=== PATIENT | male | born 1945 | race Caucasian/White ===

== ENCOUNTER 2016-07-08 09:34 | Emergency (ER) | payer MEDICARE ==
[~2016-07-08] VITALS: Ht 176.5 cm; Wt 95.2 kg
[~2016-07-08 09:34] MED LIST: GLIM1TAB PO; LOSA25TA31 PO; PANT20 PO; PRAV40TA2 PO
[2016-07-08 09:43] VITALS: BP 142/79; PULSE 55; RESP 18; TEMP 98; O2SAT 100
--- NOTE | 2016-07-08 10:15 | PD ---
HPI Chief Complaint: Musculoskeletal Complaint Time Seen by Provider: 10:08 Travel History International Travel<30 days: No Contact w/Intl Traveler<30days: No Traveled to known affect area: No History of Present Illness HPI This patient complains of pain from a fall. 3 days ago he slipped on the shower and fell backwards and hit his Upper back. He complains of pain in the neck and upper back. Symptoms severity is moderate. Slightly improved from 3 days ago but still hurting. No neurologic complaint. No headache. No LOC. PFSH Past Medical History Diabetes: Yes Diminished Hearing: No Hypertension: Yes Social History Alcohol Use: Yes (occasionally) Tobacco Use: Yes (several cigars, daily) Substance Use: No Allergies-Medications (Allergen,Severity, Reaction): Coded Allergies: Erythromycin (Verified Allergy, Intermediate, Diarrhea, 07/08/16) Reported Meds & Prescriptions Reported Meds & Active Scripts Active Reported Otezla (Apremilast) 30 Mg Tab 30 Mg PO BID Glimepiride 2 Mg Tab 2 Mg PO DAILY Take with breakfast or first main meal Losartan (Losartan Potassium) 25 Mg Tab 25 Mg PO DAILY Pantoprazole (Pantoprazole Sodium) 20 Mg Tab 20 Mg PO BID Review of Systems General / Constitutional: No: Fever HENT: No: Headaches Respiratory: No: Cough Physical Exam Narrative SKIN: Inspection shows no rash or ulcers. Palpation shows no induration or nodules. Psych: Normal mood and affect. Normal insight and judgment. Back: Has some soreness in the musculature near the upper thoracic spine and lower cervical spine. No true midline tenderness. No bruising or deformity. Data Data Last Documented VS Vital Signs Date Time Temp Pulse Resp B/P Pulse Ox O2 Delivery O2 Flow Rate FiO2 07/08/16 09:43 98.0 55 18 142/79 100 Orders Spine, Cervical - Ltd (Ap&Lat) (07/08/16 ) Spine, Thoracic-Ap/Lat/Sw(3vw) (07/08/16 ) MDM Medical Decision Making Medical Screen Exam Complete: Yes Emergency Medical Condition: Yes Medical Record Reviewed: Yes Differential Diagnosis Contusion, muscle strain, compression fracture Narrative Course I have reviewed the patient's electronic medical record. Patient is neurologically intact. There are no Significant objective findings I reviewed his cervical spine x-rays which arthritic changes and a fusion but no fracture I reviewed his thoracic spine x-rays show arthritic change without fracture Stable for outpatient follow-up Diagnosis Primary Impression: Contusion of back Qualified Code: S20.222A - Contusion of back, left, initial encounter Additional Instructions: The patient was advised to follow up with their physician and return if they worsen. Med/Other Pt SpecificInfo: Other Disposition: 01 DISCHARGE HOME Condition: Stable Neri Layne MD Jul 08, 2016 10:15
[2016-07-08] MEDS ORDERED: APRE1TAB3 PO (10:22)
[2016-07-08] MEDS ORDERED: GLIM2TAB PO (10:22)
[2016-07-08] MEDS ORDERED: PANT20TA2 PO (10:22)
[2016-07-08] MEDS ORDERED: LOSA25TA PO (10:22)
--- NOTE | 2016-07-08 11:36 | RADHPO ---
EXAM DATE/TIME: 07/08/2016 10:55 [facility] COMPARISON: No previous studies available for comparison. INDICATIONS : Neck pain after falling 4 days ago. MEDICAL HISTORY : Hypertension. Diabetes mellitus type 2. SURGICAL HISTORY : Cervical laminectomy. ENCOUNTER: Initial ACUITY: 4 - 6 days PAIN SCORE: 8/10 LOCATION: Neck. FINDINGS: Two projection examination was performed. On this 2 view examination there appears to be good alignme nt of the cervical spine. There appears to be evidence of fusion at C4-5 and C5-6. C7 is not well dem onstrated due to patient's shoulders. The bony structures appear to be grossly intact. No soft tissu e swelling is demonstrated. There are some primary degenerative change is present. The odontoid proce ss is intact. CONCLUSION: 1. Limited 2 views of the cervical spine. No definite bony fracture. 2. Primary bony degenerative changes. 3. Evidence of prior fusion at C4-5 and C5-6. Clive Vargas MD on July 08, 2016 at 11:31 Board Certified Radiologist. This report was verified electronically.
--- NOTE | 2016-07-08 11:38 | RADHPO ---
EXAM DATE/TIME: 07/08/2016 11:00 [facility] COMPARISON: No previous studies available for comparison. INDICATIONS : Mid back pain for 4 days after falling. MEDICAL HISTORY : Hypertension. Diabetes mellitus type 2. SURGICAL HISTORY : Cervical laminectomy. ENCOUNTER: Initial ACUITY: 4 - 6 days PAIN SCORE: 8/10 LOCATION: Thoracic. FINDINGS: There is normal alignment of the thoracic vertebral bodies. Vertebral body height is maintained. No evidence of fracture or subluxation. There are primary bony degenerative changes noted throughout th e thoracic spine. Pedicles are intact at all levels. The paravertebral reflections are not thickened . CONCLUSION: No acute bony fracture. Primary bony degenerative changes. Clive Vargas MD on July 08, 2016 at 11:35 Board Certified Radiologist. This report was verified electronically.
== END 2016-07-08 12:22 | disposition home or self-care (01) ==
LOC: PHED 09:34
DX: S20.222A Contusion of left back wall of thorax, initial encounter (principal); I10 Essential (primary) hypertension; E11.9 Type 2 diabetes mellitus without complications; Z79.4 Long term (current) use of insulin; F17.210 Nicotine dependence, cigarettes, uncomplicated; W18.2XXA Fall in (into) shower or empty bathtub, initial encounter; Y93.9 Activity, unspecified; Y92.9 Unspecified place or not applicable; Y99.9 Unspecified external cause status
CPT/HCPCS: 72040; 72072; 99283

== ENCOUNTER 2016-12-04 02:10 | Emergency (ER) | payer MEDICARE ==
[~2016-12-04] VITALS: Ht 175.3 cm; Wt 97.3 kg
[~2016-12-04 02:10] MED LIST changes: +APRE1TAB3 PO; -GLIM1TAB PO; +GLIM2TAB PO; +LOSA25TA PO; -LOSA25TA31 PO; -PANT20 PO; +PANT20TA2 PO; -PRAV40TA2 PO
[2016-12-04 02:17] VITALS: BP 185/102; PULSE 63; RESP 12; TEMP 97.8; O2SAT 100
[2016-12-04] MEDS ORDERED: CHOL4POW3 PO (02:36)
[2016-12-04] MEDS ORDERED: SODIUM CHLOR 0.9% 1000 ML INJ 1,000 ML IV SCH (02:41)
[2016-12-04] MEDS ORDERED: ONDANSETRON HCL 4 MG/2 ML VIAL IVP ONE (02:45)
[2016-12-04] MEDS ORDERED: SODIUM CHLORIDE 0.9% FLUSH 10 ML FLUSH IV FLUSH PRN (02:45)
[2016-12-04 03:06] LABS: AUTOMATED NEUTROPHIL # 5.2 TH/MM3 (1.8-7.7); BASOPHIL # 0.1 TH/MM3 (0-0.2); BASOPHIL % 1.2 % (0.0-2.0); EOSINOPHIL # 0.1 TH/MM3 (0-0.4); EOSINOPHIL % 1.7 % (0.0-4.0); HEMATOCRIT 36.1 % (39.0-51.0); LYMPH % 12.9 % (9.0-44.0); LYMPHOCYTE # 0.9 TH/MM3 (1.0-4.8); MEAN CELL VOLUME 66.1 FL (80.0-100.0); MEAN CORPUSCULAR HEMOGLOBIN 20.5 PG (27.0-34.0); MONO % 10.6 % (0.0-8.0); NEUT % 73.6 % (16.0-70.0); PLATELET COUNT 187 TH/MM3 (150-450); RED BLOOD COUNT 5.47 MIL/MM3 (4.50-5.90); RED CELL DISTRIBUTION WIDTH 14.6 % (11.6-17.2); WHITE BLOOD COUNT 7.1 TH/MM3 (4.0-11.0)
[2016-12-04 03:13] LABS: CHLORIDE 105 MEQ/L (98-107); POTASSIUM 4.1 MEQ/L (3.5-5.1); SODIUM (NA) 144 MEQ/L (136-145)
[2016-12-04 03:14] VITALS: O2SAT 97
[2016-12-04 03:15] LABS: GLUCOSE,URINE NEG (NEG); KETONE, URINE NEG (NEG); NITRITE,URINE NEG (NEG); PH, URINE 5.5 (5.0-8.5)
[2016-12-04 03:17] LABS: ANION GAP 8 MEQ/L (5-15); BLOOD UREA NITROGEN 15 MG/DL (7-18)
[2016-12-04 03:19] LABS: ALT (GPT) 20 U/L (12-78)
[2016-12-04 03:20] LABS: AST (GOT) 12 U/L (15-37); GLOMERULAR FILTRATION RATE 74 ML/MIN (>89)
[2016-12-04 03:21] LABS: HEMO FLAGS AUTO DIFF; TOTAL BILIRUBIN ADULT 0.2 MG/DL (0.2-1.0)
[2016-12-04 03:22] LABS: BLOOD, URINE MOD (NEG); COMMENT (UR) CULT NOT INDICATED; CULTURE IF INDICATED CULT NOT INDICATED; RBC, URINE 15-19 /hpf (0-3); SQUAMOUS EPITHELIAL CELL URINE 0-5 /hpf (0-5); URINE COLOR YELLOW (YELLW/STRAW); WBC, URINE 0-2 /hpf (0-5)
[2016-12-04 03:22] LABS: ALKALINE PHOSPHATASE 86 U/L (45-117)
[2016-12-04 03:37] LABS: OVALOCYTES 2+ (NORMAL); PLATELET ESTIMATE SMEAR NORMAL (NORMAL); PLATELET MORPHOLOGY NORMAL (NORMAL); SCAN/DIFF AUTO DIFF CONFIRMED
[2016-12-04] MEDS ORDERED: IOHEXOL 350 MG/ML 10 ML VIAL (for RAD DIAG) IV ONE (03:47)
[2016-12-04 03:50] VITALS: BP 159/80; PULSE 72; RESP 18; O2SAT 100
[2016-12-04 04:44] VITALS: BP 167/86; PULSE 79; RESP 18; O2SAT 97
--- NOTE | 2016-12-04 04:47 | RADRPT ---
EXAM DATE/TIME: 12/04/2016 03:28 [facility] COMPARISON: CT ABDOMEN & PELVIS W CONTRAST, October 18, 2015, 20:49. INDICATIONS : Left flank abdominal pain with vomiting. IV CONTRAST: 100 cc Omnipaque 350 (iohexol) IV ORAL CONTRAST: No oral contrast ingested. RADIATION DOSE: 20.06 CTDIvol (mGy) MEDICAL HISTORY : Diabetes mellitus type 2. Hypertension. SURGICAL HISTORY : Fusion, lumbar. Cholecystectomy.Laminectomy. ENCOUNTER: Initial ACUITY: 1 day PAIN SCALE: 8/10 LOCATION: Left flank abdomen TECHNIQUE: Volumetric scanning of the abdomen and pelvis was performed. Using automated exposure control and ad justment of the mA and/or kV according to patient size, radiation dose was kept as low as reasonably achievable to obtain optimal diagnostic quality images. DICOM format image data is available electro nically for review and comparison. FINDINGS: LOWER LUNGS: The visualized lower lungs are clear. Stable small hiatus hernia. LIVER: Homogeneous density without lesion. There is no dilation of the biliary tree. Cholecystectomy. SPLEEN: Normal size without lesion. PANCREAS: Fatty replaced. No focal induration. KIDNEYS: The right kidney has a normal appearance for a noncalcified stones are to her 1st period of the left side, there are 2 calcified stones in the lower pole which measure 6 mm. There is mild hydronephrosi s and hydroureter down to the distal portion. There is a 4 mm calcification within the urinary bladd er adjacent to the trigone which probably represents a recently passed stone. ADRENAL GLANDS: Within normal limits. VASCULAR: There is no aortic aneurysm. BOWEL/MESENTERY: No dilated loops of small or large bowel. The appendix is identified, has a normal appearance, and i s retrocecal in location. Scattered sigmoid diverticula without radiographic evidence of diverticuli tis. No evidence of free fluid. ABDOMINAL WALL: Within normal limits. RETROPERITONEUM: There is no lymphadenopathy. BLADDER: No wall thickening or mass. REPRODUCTIVE: Within normal limits. INGUINAL: There is no lymphadenopathy or hernia. MUSCULOSKELETAL: Within normal limits for patient age. CONCLUSION: 1. Mild left hydronephrosis and hydroureter with a 4 mm calcification within the urinary bladder andrés cent to the left trigone, probably representing a recently passed left renal stone. There are 2 srini tional calcified stones lower pole left kidney. 2. Stable hiatus hernia and sigmoid diverticula. Mark Romero MD on December 04, 2016 at 4:40 Board Certified Radiologist. This report was verified electronically.
--- NOTE | 2016-12-04 05:08 | PD ---
HPI Chief Complaint: Flank/Kidney Pain Time Seen by Provider: 02:41 Travel History International Travel<30 days: No Contact w/Intl Traveler<30days: No Traveled to known affect area: No History of Present Illness HPI The patient is a 71-year-old male with history of diverticulitis and previous urinary stones who complains of left flank pain beginning tonight. He has also been vomiting. He denies any blood in the vomitus. The pain is sharp and 10 over 10. PFSH Past Medical History Diabetes: Yes Patient Takes Glucophage: No Diminished Hearing: No GERD: Yes Hypertension: Yes Tetanus Vaccination: > 5 Years Influenza Vaccination: Yes Past Surgical History Cholecystectomy: Yes Social History Alcohol Use: Yes (occasionally) Tobacco Use: Yes (several cigars, weekly) Substance Use: No Allergies-Medications (Allergen,Severity, Reaction): Coded Allergies: Erythromycin (Verified Allergy, Intermediate, Diarrhea, 12/04/16) Reported Meds & Prescriptions Reported Meds & Active Scripts Active Reported Cholestyramine 4 Gm/Dose Powd 4 Gm PO DAILY 1 level scoopful of powder contains 4 grams of cholestyramine. Glimepiride 2 Mg Tab 1 Mg PO DAILY Take with breakfast or first main meal Losartan (Losartan Potassium) 25 Mg Tab 25 Mg PO DAILY Pantoprazole (Pantoprazole Sodium) 20 Mg Tab 20 Mg PO BID Review of Systems Except as stated in HPI: all other systems reviewed are Neg Physical Exam Narrative GENERAL: The patient is alert, oriented 3 in moderate distress with his left flank pain. His vital signs show blood pressure 185/102 but otherwise normal. SKIN: Focused skin assessment warm/dry. HEAD: Atraumatic. Normocephalic. EYES: Pupils equal and round. No scleral icterus. No injection or drainage. ENT: No nasal bleeding or discharge. Mucous membranes pink and moist. NECK: Trachea midline. No JVD. CARDIOVASCULAR: Regular rate and rhythm. No murmur appreciated. RESPIRATORY: No accessory muscle use. Clear to auscultation. Breath sounds equal bilaterally. GASTROINTESTINAL: Abdomen soft, with tenderness in the left UVJ and flank to direct palpation, nondistended. Hepatic and splenic margins not palpable. No guarding or rebound is present. MUSCULOSKELETAL: No obvious deformities. No clubbing. No cyanosis. No edema. NEUROLOGICAL: Awake and alert. No obvious cranial nerve deficits. Motor grossly within normal limits. Normal speech. PSYCHIATRIC: Appropriate mood and affect; insight and judgment normal. Data Data Last Documented VS Vital Signs Date Time Temp Pulse Resp B/P Pulse Ox O2 Delivery O2 Flow Rate FiO2 12/04/16 04:44 79 18 167/86 97 Room Air 12/04/16 02:17 97.8 Orders Complete Blood Count With Diff (12/04/16 02:41) Comprehensive Metabolic Panel (12/04/16 02:41) Lipase (12/04/16 02:41) Urinalysis - C+S If Indicated (12/04/16 02:41) Ct Abd/Pel W Iv Contrast(Rout) (12/04/16 02:41) Iv Access Insert/Monitor (12/04/16 02:41) Ecg Monitoring (12/04/16 02:41) Oximetry (12/04/16 02:41) Ondansetron Inj (Zofran Inj) (12/04/16 02:45) Sodium Chlor 0.9% 1000 Ml Inj (Ns 1000 M (12/04/16 02:41) Sodium Chloride 0.9% Flush (Ns Flush) (12/04/16 02:45) Iohexol 350 Inj (Omnipaque 350 Inj) (12/04/16 03:47) Labs Laboratory Tests Test 12/04/16 12/04/16 03:00 03:06 White Blood Count 7.1 TH/MM3 Red Blood Count 5.47 MIL/MM3 Hemoglobin 11.2 GM/DL Hematocrit 36.1 % Mean Corpuscular Volume 66.1 FL Mean Corpuscular Hemoglobin 20.5 PG Mean Corpuscular Hemoglobin 31.0 % Concent Red Cell Distribution Width 14.6 % Platelet Count 187 TH/MM3 Mean Platelet Volume 8.8 FL Neutrophils (%) (Auto) 73.6 % Lymphocytes (%) (Auto) 12.9 % Monocytes (%) (Auto) 10.6 % Eosinophils (%) (Auto) 1.7 % Basophils (%) (Auto) 1.2 % Neutrophils # (Auto) 5.2 TH/MM3 Lymphocytes # (Auto) 0.9 TH/MM3 Monocytes # (Auto) 0.8 TH/MM3 Eosinophils # (Auto) 0.1 TH/MM3 Basophils # (Auto) 0.1 TH/MM3 CBC Comment AUTO DIFF Differential Comment AUTO DIFF CONFIRMED Platelet Estimate NORMAL Platelet Morphology Comment NORMAL Ovalocytes 2+ Sodium Level 144 MEQ/L Potassium Level 4.1 MEQ/L Chloride Level 105 MEQ/L Carbon Dioxide Level 31.0 MEQ/L Anion Gap 8 MEQ/L Blood Urea Nitrogen 15 MG/DL Creatinine 1.00 MG/DL Estimat Glomerular Filtration 74 ML/MIN Rate Random Glucose 124 MG/DL Calcium Level 8.5 MG/DL Total Bilirubin 0.2 MG/DL Aspartate Amino Transf 12 U/L (AST/SGOT) Alanine Aminotransferase 20 U/L (ALT/SGPT) Alkaline Phosphatase 86 U/L Total Protein 6.4 GM/DL Albumin 3.2 GM/DL Lipase 67 U/L Urine Color YELLOW Urine Turbidity CLEAR Urine pH 5.5 Urine Specific [place] 1.017 Urine Protein NEG mg/dL Urine Glucose (UA) NEG mg/dL Urine Ketones NEG mg/dL Urine Occult Blood MOD Urine Nitrite NEG Urine Bilirubin NEG Urine Leukocyte Esterase NEG Urine RBC 15-19 /hpf Urine WBC 0-2 /hpf Urine Squamous Epithelial 0-5 /hpf Cells Urine Bacteria NONE /hpf Microscopic Urinalysis Comment CULT NOT INDICATED MDM Medical Decision Making Medical Screen Exam Complete: Yes Emergency Medical Condition: Yes Medical Record Reviewed: Yes Interpretation(s) The CBC shows a hemoglobin of 11.2 and hematocrit of 36.1 but is otherwise unremarkable. The complete metabolic profile shows a GFR of 74, albumin of 3.2 but is otherwise normal. The lipase is normal. The urine shows moderate occult blood with 15-19 red cells but is otherwise normal and culture is not indicated. The CT abdomen/pelvis shows mild left hydronephrosis and hydroureter with a 4 mm calcification within the urinary bladder adjacent to the left trigone. This probably represents a recently passed left renal stone. There are 2 additional calcified stones in the lower pole of the left kidney. Incidentally noted is a hiatal hernia and sigmoid diverticula. Differential Diagnosis Diverticulitis, urinary stone, appendicitis, colitis Narrative Course The patient has a recently passed 4 mm urinary stone. It is now 0500 and the morning and the patient feels better and is able to go home. Diagnosis Primary Impression: Left ureteral calculus Additional Instructions: As we discussed, you just passed a 4 mm stone. Take [id number] Motrin and follow-up with your primary care physician if you have any problems. Severe pain should promptly return to the emergency department. Med/Other Pt SpecificInfo: No Change to Meds Disposition: 01 DISCHARGE HOME Condition: Stable Walter Cabezas MD Dec 04, 2016 05:08
== END 2016-12-04 05:20 | disposition home or self-care (01) ==
LOC: PHED 02:10
DX: N13.2 Hydronephrosis with renal and ureteral calculous obstruction (principal); K44.9 Diaphragmatic hernia without obstruction or gangrene; K57.30 Diverticulosis of large intestine without perforation or abscess without bleeding; E11.9 Type 2 diabetes mellitus without complications; I10 Essential (primary) hypertension; K21.9 Gastro-esophageal reflux disease without esophagitis
CPT/HCPCS: 74177; 80053; 81001; 83690; 85025; 96360; 99285; J7030; Q9967

== ENCOUNTER 2017-07-27 09:10 | Emergency (ER) | payer MEDICARE, OTHER ==
[~2017-07-27] VITALS: Ht 175.3 cm; Wt 94.0 kg
[~2017-07-27 09:10] MED LIST changes: -APRE1TAB3 PO; +CHOL4POW3 PO
[2017-07-27 09:14] VITALS: BP 184/82; PULSE 103; RESP 24; TEMP 100.1; O2SAT 97
[2017-07-27] MEDS ORDERED: FOLI800T PO (10:25)
[2017-07-27] MEDS ORDERED: ACETAMINOPHEN 500 MG CPLT PO ONE (10:45)
[2017-07-27] MEDS ORDERED: OSELTAMIVIR PHOSPHATE 75 MG CAP PO ONE (10:45)
--- NOTE | 2017-07-27 10:49 | PD ---
HPI Chief Complaint: Cold / Flu Symptoms Time Seen by Provider: 10:37 Travel History International Travel<30 days: No Contact w/Intl Traveler<30days: No Traveled to known affect area: No History of Present Illness HPI This 72-year-old male complaining of cough and congestion. Started getting sick Thursday night. He's had some sore throat. He's had fever to 101. He has a history of type 2 diabetes and hypertension. He has no history of heart disease. He's been coughing up some yellow phlegm. He has been having diffuse myalgias PFSH Past Medical History High Cholesterol: Yes Diabetes: Yes Patient Takes Glucophage: No Diminished Hearing: No GERD: Yes Hypertension: Yes Past Surgical History Cholecystectomy: Yes Social History Alcohol Use: Yes (occasionally) Tobacco Use: Yes (several cigars, weekly) Substance Use: No Allergies-Medications (Allergen,Severity, Reaction): Coded Allergies: erythromycin base (Unverified Allergy, Intermediate, Diarrhea, 07/27/17) Reported Meds & Prescriptions Reported Meds & Active Scripts Active Reported Folic Acid 0.8 Mg Tab 800 Mcg PO DAILY Cholestyramine 4 Gm/Dose Powd 4 Gm PO DAILY 1 level scoopful of powder contains 4 grams of cholestyramine. Glimepiride 2 Mg Tab 1 Mg PO DAILY Take with breakfast or first main meal Losartan (Losartan Potassium) 25 Mg Tab 25 Mg PO DAILY Pantoprazole (Pantoprazole Sodium) 20 Mg Tab 20 Mg PO BID Review of Systems General / Constitutional: Positive: Fever, Chills Eyes: No: Drainage HENT: Positive: Sore Throat Cardiovascular: No: Chest Pain or Discomfort, Palpitations Respiratory: Positive: Cough Gastrointestinal: No: Vomiting, Diarrhea Genitourinary: No: Urgency Musculoskeletal: Positive: Myalgias Neurologic: Positive: Weakness Physical Exam Narrative GENERAL: Well-developed male is 89 SKIN: Focused skin assessment warm/dry. HEAD: Atraumatic. Normocephalic. EYES: Pupils equal and round. No scleral icterus. No injection or drainage. ENT: No nasal bleeding or discharge. Mucous membranes pink and moist. NECK: Trachea midline. No JVD. CARDIOVASCULAR: Regular rate and rhythm. No murmur appreciated. RESPIRATORY: No accessory muscle use. Clear to auscultation. Breath sounds equal bilaterally. GASTROINTESTINAL: Abdomen soft, non-tender, nondistended. Hepatic and splenic margins not palpable. MUSCULOSKELETAL: No obvious deformities. No clubbing. No cyanosis. No edema. NEUROLOGICAL: Awake and alert. No obvious cranial nerve deficits. Motor grossly within normal limits. Normal speech. PSYCHIATRIC: Appropriate mood and affect; insight and judgment normal. Data Data Last Documented VS Vital Signs Date Time Temp Pulse Resp B/P (MAP) Pulse Ox O2 Delivery O2 Flow Rate FiO2 07/27/17 12:15 102.2 92 18 150/69 (96) 95 Room Air Orders Orders Oseltamivir (Tamiflu) (07/27/17 10:45) Acetaminophen (Tylenol) (07/27/17 10:45) Chest, Single Ap (07/27/17 10:46) Complete Blood Count With Diff (07/27/17 12:22) Comprehensive Metabolic Panel (07/27/17 12:22) Lactic Acid Sepsis Protocol (07/27/17 12:22) Urinalysis - C+S If Indicated (07/27/17 12:22) Influenzae A/B Antigen (07/27/17 12:22) Blood Culture (07/27/17 12:22) Sodium Chlor 0.9% 1000 Ml Inj (Ns 1000 M (07/27/17 12:30) Ketorolac Inj (Toradol Inj) (07/27/17 12:30) Ondansetron Inj (Zofran Inj) (07/27/17 12:30) Labs Laboratory Tests Test 07/27/17 12:25 White Blood Count 6.7 TH/MM3 Red Blood Count 5.40 MIL/MM3 Hemoglobin 11.2 GM/DL Hematocrit 36.0 % Mean Corpuscular Volume 66.6 FL Mean Corpuscular Hemoglobin 20.7 PG Mean Corpuscular Hemoglobin Concent 31.0 % Red Cell Distribution Width 14.1 % Platelet Count 137 TH/MM3 Mean Platelet Volume 9.0 FL Neutrophils (%) (Auto) 85.3 % Lymphocytes (%) (Auto) 5.2 % Monocytes (%) (Auto) 5.8 % Eosinophils (%) (Auto) 0.2 % Basophils (%) (Auto) 3.5 % Neutrophils # (Auto) 5.8 TH/MM3 Lymphocytes # (Auto) 0.3 TH/MM3 Monocytes # (Auto) 0.4 TH/MM3 Eosinophils # (Auto) 0.0 TH/MM3 Basophils # (Auto) 0.2 TH/MM3 CBC Comment AUTO DIFF Blood Urea Nitrogen 10 MG/DL Creatinine 1.20 MG/DL Random Glucose 138 MG/DL Total Protein 6.8 GM/DL Albumin 3.5 GM/DL Calcium Level 8.3 MG/DL Alkaline Phosphatase 97 U/L Aspartate Amino Transf (AST/SGOT) 28 U/L Alanine Aminotransferase (ALT/SGPT) 27 U/L Total Bilirubin 0.5 MG/DL Sodium Level 135 MEQ/L Potassium Level 4.0 MEQ/L Chloride Level 101 MEQ/L Carbon Dioxide Level 28.5 MEQ/L Anion Gap 6 MEQ/L Estimat Glomerular Filtration Rate 60 ML/MIN Lactic Acid Level 1.7 mmol/L [facility] Medical Decision Making Medical Screen Exam Complete: Yes Emergency Medical Condition: Yes Medical Record Reviewed: Yes Differential Diagnosis Differential includes pneumonia, influenza, viral syndrome Narrative Course Chest x-ray is negative for pneumonia. White count is 6000. Tests for influenza is positive. Diagnosis Primary Impression: Influenza A Additional Instructions: Drink plenty of fluids, take Tylenol and Motrin for fever Scripts Ondansetron Odt (Zofran Odt) 4 Mg Tab 4 MG SL Q6HR Y for Nausea/Vomiting, #10 TAB 0 Refills Prov: Rashad Farias MD 07/27/17 Oseltamivir (Tamiflu) 75 Mg Cap 75 MG PO BID for Mgmt Viral Infection for 5 Days, #10 CAP 0 Refills Prov: Rashad Farias MD 07/27/17 Disposition: 01 DISCHARGE HOME Condition: Stable Rashad Farias MD Jul 27, 2017 10:49
[2017-07-27 11:15] VITALS: BP 173/80; PULSE 93; RESP 18; TEMP 103; O2SAT 95
--- NOTE | 2017-07-27 11:50 | RADRPT ---
EXAM DATE/TIME: 07/27/2017 11:19 [facility] COMPARISON: No previous studies available for comparison. INDICATIONS : Chest pain, shortness of breath and flu like symptoms. MEDICAL HISTORY : Diabetes mellitus type 2. Hypertension. SURGICAL HISTORY : Fusion, lumbar. Cholecystectomy.Laminectomy ENCOUNTER: Initial ACUITY: 3 days PAIN SCORE: 4/10 LOCATION: Bilateral chest FINDINGS: 2 frontal views of the chest demonstrate the lungs to be symmetrically aerated without evidence of ma ss, infiltrate or effusion. The heart is mildly enlarged without pulmonary vascular engorgement. A d egenerative thoracic spine. CONCLUSION: 1. Cardiomegaly without pulmonary vascular engorgement. Mark Hernandez Jr., MD on July 27, 2017 at 11:42 Board Certified Radiologist. This report was verified electronically.
[2017-07-27 12:15] VITALS: BP 150/69; PULSE 92; RESP 18; TEMP 102.2; O2SAT 95
[2017-07-27] MEDS ORDERED: KETOROLAC TROMETHAMINE 30 MG/ML (IVP) VIAL IV PUSH ONE (12:30)
[2017-07-27] MEDS ORDERED: SODIUM CHLOR 0.9% 1000 ML INJ 1,000 ML IV ONE (12:30)
[2017-07-27] MEDS ORDERED: ONDANSETRON HCL 4 MG/2 ML VIAL IV PUSH ONE (12:30)
[2017-07-27 12:40] LABS: AUTOMATED NEUTROPHIL # 5.8 TH/MM3 (1.8-7.7); BASOPHIL # 0.2 TH/MM3 (0-0.2); BASOPHIL % 3.5 % (0.0-2.0); EOSINOPHIL % 0.2 % (0.0-4.0); HEMOGLOBIN 11.2 GM/DL (13.0-17.0); LYMPH % 5.2 % (9.0-44.0); LYMPHOCYTE # 0.3 TH/MM3 (1.0-4.8); MEAN CELL VOLUME 66.6 FL (80.0-100.0); MEAN CORPUSCULAR HEMOGLOBIN 20.7 PG (27.0-34.0); MONO % 5.8 % (0.0-8.0); MONOCYTE # 0.4 TH/MM3 (0-0.9); NEUT % 85.3 % (16.0-70.0); PLATELET COUNT 137 TH/MM3 (150-450); RED CELL DISTRIBUTION WIDTH 14.1 % (11.6-17.2); WHITE BLOOD COUNT 6.7 TH/MM3 (4.0-11.0)
[2017-07-27 12:48] LABS: CHLORIDE 101 MEQ/L (98-107); SODIUM (NA) 135 MEQ/L (136-145)
[2017-07-27 12:53] LABS: ALBUMIN 3.5 GM/DL (3.4-5.0); BICARBONATE 28.5 MEQ/L (21.0-32.0); BLOOD UREA NITROGEN 10 MG/DL (7-18); CALCIUM 8.3 MG/DL (8.5-10.1); GLUCOSE,RANDOM 138 MG/DL (74-106)
[2017-07-27 12:56] LABS: ALT (GPT) 27 U/L (12-78); AST (GOT) 28 U/L (15-37)
[2017-07-27 12:58] LABS: GLOMERULAR FILTRATION RATE 60 ML/MIN (>89); TOTAL BILIRUBIN ADULT 0.5 MG/DL (0.2-1.0); TOTAL PROTEIN 6.8 GM/DL (6.4-8.2)
[2017-07-27 12:59] LABS: ALKALINE PHOSPHATASE 97 U/L (45-117)
[2017-07-27] MEDS ORDERED: OSEL75 PO (13:09)
[2017-07-27] MEDS ORDERED: ZOFR4TAB3 SL (13:09)
[2017-07-27 13:11] LABS: OVALOCYTES 2+ (NORMAL)
[2017-07-27 13:35] VITALS: BP 125/59; PULSE 89; RESP 16; TEMP 99.4; O2SAT 96
[2017-07-27] MEDS ORDERED: TYLE325T PO ×2 (20:14)
[2017-07-27] MEDS ORDERED: GLIM1TAB PO ×2 (20:14)
== END 2017-07-27 14:01 | disposition home or self-care (01) ==
LOC: PHED 09:10
DX: J09.X2 Influenza due to identified novel influenza A virus with other respiratory manifestations (principal); E78.00 Pure hypercholesterolemia, unspecified; E11.9 Type 2 diabetes mellitus without complications; I10 Essential (primary) hypertension; F17.290 Nicotine dependence, other tobacco product, uncomplicated; Z88.1 Allergy status to other antibiotic agents; Z79.899 Other long term (current) drug therapy
CPT/HCPCS: 71045; 80053; 83605; 85025; 87040; 87804; 96361; 96374; 96375; 99284; J1885; J2405; J7030

== ENCOUNTER 2017-07-27 19:14 | Inpatient (IN) | payer OTHER, MEDICARE ==
[~2017-07-27] VITALS: Ht 175.3 cm; Wt 95.7 kg
[~2017-07-27 19:14] MED LIST changes: +FOLI800T PO; +OSEL75 PO; +ZOFR4TAB3 SL
[2017-07-27 19:33] VITALS: BP 155/69; PULSE 101; RESP 12; TEMP 100.3; O2SAT 94
[2017-07-27] MEDS ORDERED: TYLE325T PO ×2 (20:14)
[2017-07-27] MEDS ORDERED: GLIM1TAB PO ×2 (20:14)
[2017-07-27 20:25] VITALS: BP 150/61; PULSE 106; RESP 14; RESP 16; TEMP 102.8; O2SAT 91; O2SAT 92
[2017-07-27] MEDS ORDERED: PIPERACIL-TAZO 4.5 GM PREMIX 100 ML IV ONE (20:30)
[2017-07-27] MEDS ORDERED: SODIUM CHLOR 0.9% 1000 ML INJ 1,000 ML IV ONE (20:30)
[2017-07-27] MEDS ORDERED: ACETAMINOPHEN 500 MG CPLT PO ONE (20:30)
[2017-07-27] MEDS ORDERED: ONDANSETRON HCL 4 MG/2 ML VIAL IV PUSH ONE (20:30)
[2017-07-27 21:17] LABS: AUTOMATED NEUTROPHIL # 6.9 TH/MM3 (1.8-7.7); BASOPHIL # 0.1 TH/MM3 (0-0.2); BASOPHIL % 0.8 % (0.0-2.0); BILIRUBIN, URINE NEG (NEG); BLOOD, URINE NEG (NEG); EOSINOPHIL % 0.1 % (0.0-4.0); GLUCOSE,URINE NEG (NEG); HEMATOCRIT 35.9 % (39.0-51.0); HEMOGLOBIN 11.4 GM/DL (13.0-17.0); KETONE, URINE NEG (NEG); LYMPHOCYTE # 0.2 TH/MM3 (1.0-4.8); MEAN CELL VOLUME 65.9 FL (80.0-100.0); MEAN CORPUSCULAR HEMOGLOBIN 20.9 PG (27.0-34.0); MEAN CORPUSCULAR HGB CONC 31.6 % (32.0-36.0); MEAN PLATELET VOLUME 8.6 FL (7.0-11.0); MONO % 1.5 % (0.0-8.0); MONOCYTE # 0.1 TH/MM3 (0-0.9); NEUT % 94.6 % (16.0-70.0); NITRITE,URINE NEG (NEG); PH, URINE 5.5 (5.0-8.5); PLATELET COUNT 130 TH/MM3 (150-450); RED BLOOD COUNT 5.45 MIL/MM3 (4.50-5.90); RED CELL DISTRIBUTION WIDTH 14.1 % (11.6-17.2); URINE LEUKOCYTE ESTERASE NEG (NEG); WHITE BLOOD COUNT 7.3 TH/MM3 (4.0-11.0)
[2017-07-27 21:23] LABS: URINE COLOR YELLOW (YELLW/STRAW)
[2017-07-27 21:25] VITALS: BP 122/57; PULSE 104; RESP 14; O2SAT 96
[2017-07-27 21:25] LABS: MUCUS URINE FEW /lpf (OCC); SQUAMOUS EPITHELIAL CELL URINE 0-5 /hpf (0-5)
[2017-07-27 21:27] LABS: AMORPHOUS SEDIMENT, URINE SMALL
[2017-07-27 21:30] LABS: CHLORIDE 102 MEQ/L (98-107); SODIUM (NA) 135 MEQ/L (136-145)
[2017-07-27 21:34] LABS: ALBUMIN 3.4 GM/DL (3.4-5.0); BICARBONATE 26.2 MEQ/L (21.0-32.0); BLOOD UREA NITROGEN 12 MG/DL (7-18); CALCIUM 8.2 MG/DL (8.5-10.1); GLUCOSE,RANDOM 92 MG/DL (74-106); INTERNATIONAL NORMALIZED RATIO 1.1 RATIO; MAGNESIUM 1.6 MG/DL (1.5-2.5); PROTHROMBIN TIME - PATIENT 11.6 SEC (9.8-11.6)
[2017-07-27 21:37] LABS: ALT (GPT) 25 U/L (12-78); AST (GOT) 25 U/L (15-37); GLOMERULAR FILTRATION RATE 60 ML/MIN (>89)
[2017-07-27 21:39] LABS: LACTIC ACID SEPSIS PROTOCOL 2.6 mmol/L (0.4-2.0); TOTAL BILIRUBIN ADULT 0.5 MG/DL (0.2-1.0); TOTAL PROTEIN 6.9 GM/DL (6.4-8.2)
[2017-07-27 21:40] LABS: ALKALINE PHOSPHATASE 97 U/L (45-117)
[2017-07-27] MEDS ORDERED: DEXTROSE 50% IN WATER 50 ML VIAL(D50) IV PUSH PRN (22:00)
[2017-07-27] MEDS ORDERED: MAGNESIUM HYDROXIDE SUSP 30 ML CUP PO PRN (22:00)
[2017-07-27] MEDS ORDERED: GLUCAGON 1 MG/ML VIAL OTHER PRN (22:00)
[2017-07-27] MEDS ORDERED: SENNOSIDES 8.6 MG TAB PO PRN (22:00)
[2017-07-27] MEDS ORDERED: SODIUM CHLORIDE 0.9% FLUSH 10 ML FLUSH IV FLUSH PRN (22:00)
[2017-07-27] MEDS ORDERED: ONDANSETRON HCL 4 MG/2 ML VIAL IVP PRN (22:00)
[2017-07-27] MEDS ORDERED: LACTULOSE SYRUP 20 GM/30 ML CUP PO PRN (22:00)
[2017-07-27] MEDS ORDERED: BISACODYL 10 MG SUPP RECTAL PRN (22:00)
[2017-07-27] MEDS ORDERED: ACETAMINOPHEN 325 MG TAB PO PRN (22:00)
[2017-07-27] MEDS ORDERED: NALOXONE HCL 0.4 MG/ML AMP IV PUSH PRN (22:00)
[2017-07-27 22:02] LABS: OVALOCYTES 1+ (NORMAL)
[2017-07-27 22:25] VITALS: BP 109/60; PULSE 96; RESP 14; TEMP 101.6; O2SAT 97
[2017-07-27] MEDS: HEPARIN SODIUM - SQ 10,000 UNITS/ML VIAL SQ SCH (22:56)
[2017-07-27] MEDS: SODIUM CHLOR 0.9% 1000 ML INJ 1,000 ML IV SCH (22:58)
[2017-07-27 23:25] VITALS: BP 99/50; PULSE 94; RESP 14; O2SAT 96
[2017-07-27 23:44] VITALS: BP 98/54; PULSE 95; RESP 14; O2SAT 98
[2017-07-28] VITALS (12 sets, daily range): BP systolic 100–145; BP diastolic 55–76; PULSE 82–116; RESP 14–20; TEMP 97.8–100.6; O2SAT 93–99
[2017-07-28] MEDS ORDERED: VANCOMYCIN INJ 1,000 MG in SODIUM CHLOR 0.9% 250 ML INJ 250 ML IV ONE ×2
[2017-07-28] MEDS ORDERED: SODIUM CHLOR 0.9% 1000 ML INJ 1,000 ML IV ONE ×2
[2017-07-28] MEDS: PIPERACIL-TAZO 4.5 GM PREMIX 100 ML IV SCH ×4 (02:32→20:53)
[2017-07-28] MEDS: HEPARIN SODIUM - SQ 10,000 UNITS/ML VIAL SQ SCH ×3 (05:33→20:54)
[2017-07-28 06:44] LABS: AUTOMATED NEUTROPHIL # 5.5 TH/MM3 (1.8-7.7); BASOPHIL % 0.7 % (0.0-2.0); LYMPH % 5.6 % (9.0-44.0); LYMPHOCYTE # 0.3 TH/MM3 (1.0-4.8); MEAN CELL VOLUME 65.9 FL (80.0-100.0); MEAN CORPUSCULAR HEMOGLOBIN 19.9 PG (27.0-34.0); MEAN CORPUSCULAR HGB CONC 30.2 % (32.0-36.0); MEAN PLATELET VOLUME 9.4 FL (7.0-11.0); MONO % 4.8 % (0.0-8.0); MONOCYTE # 0.3 TH/MM3 (0-0.9); NEUT % 88.9 % (16.0-70.0); PLATELET COUNT 129 TH/MM3 (150-450); RED BLOOD COUNT 5.01 MIL/MM3 (4.50-5.90); RED CELL DISTRIBUTION WIDTH 14.3 % (11.6-17.2); WHITE BLOOD COUNT 6.1 TH/MM3 (4.0-11.0)
[2017-07-28 07:03] LABS: BICARBONATE 26.6 MEQ/L (21.0-32.0); CALCIUM 7.3 MG/DL (8.5-10.1); CREATININE 1.3 MG/DL (0.60-1.30)
[2017-07-28 07:32] LABS: TOTAL PROTEIN 5.8 GM/DL (6.4-8.2)
[2017-07-28] MEDS: LOSARTAN 25 MG TAB PO SCH (07:57)
[2017-07-28] MEDS: INSULIN ASPART SUPPLEMENTAL SCALE SQ SCH ×4 (08:00→20:55)
[2017-07-28] MEDS: SODIUM CHLORIDE 0.9% FLUSH 10 ML FLUSH IV FLUSH SCH ×2 (08:06→20:53)
[2017-07-28] MEDS: OSELTAMIVIR PHOSPHATE 75 MG CAP PO SCH ×2 (08:07→20:54)
[2017-07-28] MEDS: PANTOPRAZOLE SOD 20 MG DELAYED RELEASE TAB PO SCH ×2 (08:07→20:54)
[2017-07-28] MEDS: SODIUM CHLOR 0.9% 1000 ML INJ 1,000 ML IV SCH ×2 (08:09→16:51)
[2017-07-28] MEDS: CHOLESTYRAMINE 4 GM PACKET PO SCH (08:10)
[2017-07-28] MEDS ORDERED: DOCUSATE SODIUM 50 MG/SENNA 8.6 MG TAB PO SCH (09:00)
--- NOTE | 2017-07-28 09:54 | HHI.HP ---
HPI Service [facility] Primary Care Physician Christopher Green MD Admission Diagnosis influenza; sepsis; bronchitis; h/o DM Diagnoses: Chief Complaint: Severe cough, failed outpatient therapy. Travel History International Travel<30 Days: No Contact w/Intl Traveler <30 Da: No Traveled to Known Affected Are: No Sepsis Criteria SIRS Criteria (2 or more): Temp > 100.9 or < 96.8, Heart rate over 90 Sepsis Criteria (SIRS+source): Infect source susp/known History of Present Illness 72-year-old male with medical history significant for hypertension, diabetes, GERD, hyperlipidemia presented to the hospital complaining of severe cough and congestion. He is had associated fever and sore throat. He presented to the emergency room earlier and was diagnosed with influenza and discharged home with Tamiflu. However he later returned because his symptoms were getting much worse. He reported diffuse myalgia and extreme fatigue. He has not been able to eat or sleep much because of a spasmodic cough bringing up yellow sputum. Review of Systems Constitutional: COMPLAINS OF: Fatigue, Fever, Chills Ears, nose, mouth, throat: COMPLAINS OF: Throat pain Respiratory: COMPLAINS OF: Cough, Sputum production, Shortness of breath Cardiovascular: DENIES: Chest pain, Syncope Gastrointestinal: COMPLAINS OF: Nausea Genitourinary: DENIES: Dysuria Musculoskeletal: COMPLAINS OF: Muscle aches Except as stated in HPI: all other systems reviewed are Neg Past Family Social History Past Medical History Hypertension, diabetes, GERD, hyperlipidemia Past Surgical History Laminectomy Cholecystectomy Right shoulder surgery Reported Medications Reported Meds & Active Scripts Active Zofran Odt (Ondansetron Odt) 4 Mg Tab 4 Mg SL Q6HR PRN Tamiflu (Oseltamivir Phosphate) 75 Mg Cap 75 Mg PO BID 5 Days Reported Tylenol (Acetaminophen) 325 Mg Tab 650 Mg PO Q4H Glimepiride 1 Mg Tab 1 Mg PO DAILY Take with breakfast or first main meal Cholestyramine 4 Gm/Dose Powd 4 Gm PO DAILY 1 level scoopful of powder contains 4 grams of cholestyramine. Losartan (Losartan Potassium) 25 Mg Tab 25 Mg PO DAILY Pantoprazole (Pantoprazole Sodium) 20 Mg Tab 20 Mg PO BID Allergies: Coded Allergies: erythromycin base (Unverified Allergy, Intermediate, Diarrhea, 07/27/17) Family History Reviewed and is found to be noncontributory. Social History Patient admits to occasional cigars and alcohol Physical Exam Vital Signs Vital Signs Date Time Temp Pulse Resp B/P (MAP) Pulse Ox O2 Delivery O2 Flow Rate FiO2 07/28/17 08:00 97.9 92 18 100/60 (73) 97 07/28/17 04:25 98 Nasal Cannula 2.00 07/28/17 04:25 98 2.00 07/28/17 04:00 98.9 89 20 100/58 (72) 93 07/28/17 01:30 100.0 94 20 104/55 (71) 96 07/28/17 01:00 07/28/17 00:45 94 14 102/63 (76) 98 Nasal Cannula 07/27/17 23:44 95 14 98/54 (69) 98 Nasal Cannula 2.00 07/27/17 23:25 94 14 99/50 (66) 96 Nasal Cannula 2.00 07/27/17 22:25 101.6 96 14 109/60 (76) 97 Nasal Cannula 2.00 07/27/17 21:25 104 14 122/57 (78) 96 Nasal Cannula 2.00 07/27/17 20:25 95 Nasal Cannula 2.00 07/27/17 20:25 102.8 106 14 150/61 (90) 92 Nasal Cannula 2.00 07/27/17 20:25 16 91 Nasal Cannula 07/27/17 20:20 104 18 92 Room Air 07/27/17 19:33 100.3 101 12 155/69 (97) 94 Physical Exam GENERAL: Looks miserable. Spasmatic cough SKIN: No rashes, ecchymoses or lesions. Cool and dry. HEAD: Atraumatic. Normocephalic. No temporal or scalp tenderness. EYES: Pupils equal round and reactive. Extraocular motions intact. No scleral icterus. No injection or drainage. ENT: Nose without bleeding, purulent drainage or septal hematoma. Throat without erythema, tonsillar hypertrophy or exudate. Uvula midline. Airway patent. NECK: Trachea midline. No JVD or lymphadenopathy. Supple, nontender, no meningeal signs. CARDIOVASCULAR: Regular rate and rhythm without murmurs, gallops, or rubs. RESPIRATORY: Unable to take deep breath due to spasmatic cough. Diffuse rhonchi throughout. GASTROINTESTINAL: Abdomen soft, non-tender, nondistended. No hepato-splenomegaly , or palpable masses. No guarding. MUSCULOSKELETAL: Extremities without clubbing, cyanosis, or edema. No joint tenderness, effusion, or edema noted. No calf tenderness. Negative Homans sign bilaterally. NEUROLOGICAL: Awake and alert. Cranial nerves II through XII intact. Motor and sensory grossly within normal limits. Five out of 5 muscle strength in all muscle groups. Normal speech. Laboratory Laboratory Tests Test 07/27/17 21:00 07/27/17 23:30 07/28/17 06:00 White Blood Count 7.3 6.1 Red Blood Count 5.45 5.01 Hemoglobin 11.4 10.0 Hematocrit 35.9 33.0 Mean Corpuscular Volume 65.9 65.9 Mean Corpuscular Hemoglobin 20.9 19.9 Mean Corpuscular Hemoglobin Concent 31.6 30.2 Red Cell Distribution Width 14.1 14.3 Platelet Count 130 129 Mean Platelet Volume 8.6 9.4 Neutrophils (%) (Auto) 94.6 88.9 Lymphocytes (%) (Auto) 3.0 5.6 Monocytes (%) (Auto) 1.5 4.8 Eosinophils (%) (Auto) 0.1 0.0 Basophils (%) (Auto) 0.8 0.7 Neutrophils # (Auto) 6.9 5.5 Lymphocytes # (Auto) 0.2 0.3 Monocytes # (Auto) 0.1 0.3 Eosinophils # (Auto) 0.0 0.0 Basophils # (Auto) 0.1 0.0 CBC Comment AUTO DIFF AUTO DIFF Differential Comment AUTO DIFF CONFIRMED AUTO DIFF CONFIRMED Platelet Estimate LOW Platelet Morphology Comment NORMAL Ovalocytes 1+ Prothrombin Time 11.6 Prothromb Time International Ratio 1.1 Activated Partial Thromboplast Time 30.5 Urine Color YELLOW Urine Turbidity CLEAR Urine pH 5.5 Urine Specific [place] 1.031 Urine Protein 30 Urine Glucose (UA) NEG Urine Ketones NEG Urine Occult Blood NEG Urine Nitrite NEG Urine Bilirubin NEG Urine Leukocyte Esterase NEG Urine Squamous Epithelial Cells 0-5 Urine Amorphous Sediment SMALL Urine Hyaline Casts 3-5 Urine Fine Granular Casts 0-2 Urine Mucus FEW Microscopic Urinalysis Comment CULT NOT INDICATED Blood Urea Nitrogen 12 13 Creatinine 1.20 1.30 Random Glucose 92 63 Total Protein 6.9 5.8 Albumin 3.4 Calcium Level 8.2 7.3 Magnesium Level 1.6 Alkaline Phosphatase 97 Aspartate Amino Transf (AST/SGOT) 25 Alanine Aminotransferase (ALT/SGPT) 25 Total Bilirubin 0.5 Sodium Level 135 138 Potassium Level 3.7 4.0 Chloride Level 102 105 Carbon Dioxide Level 26.2 26.6 Anion Gap 7 6 Estimat Glomerular Filtration Rate 60 54 Lactic Acid Level 2.6 1.1 Protein Corrected Calcium 8.0 Date/Time Source Procedure Growth Status 07/27/17 21:07 Blood Peripheral Aerobic Blood Culture Pending Received 07/27/17 21:07 Blood Peripheral Anaerobic Blood Culture Pending Received 07/27/17 21:53 Sputum Expectorated Sputum Gram Stain - Final Resulted 07/27/17 21:53 Sputum Expectorated Sputum Sputum Culture Pending Resulted Result Diagram: 07/28/17 0600 07/28/17 0600 Caprini VTE Risk Assessment Caprini VTE Risk Assessment: Mod/High Risk (score >= 2) Caprini Risk Assessment Model Point Value = 1 Point Value = 2 Point Value = 3 Point Value = 5 Age 41-60 Minor surgery BMI > 25 kg/m2 Swollen legs Varicose veins or History of unexplained or recurrent spontaneous Oral contraceptives or hormone replacement Sepsis (< 1 month) Serious lung disease, including pneumonia (< 1 month) Abnormal pulmonary function Acute myocardial infarction Congestive heart failure (< 1 month) History of inflammatory bowel disease Medical patient at bed rest Age 61-74 Arthroscopic surgery Major open surgery (> 45 min) Laparoscopic surgery (> 45 min) Malignancy Confined to bed (> 72 hours) Immobilizing plaster cast Central venous access Age >= 75 History of VTE Family history of VTE Factor V Leiden Prothrombin [id number] Lupus anticoagulant Anticardiolipin antibodies Elevated serum homocysteine Heparin-induced thrombocytopenia Other congenital or acquired thrombophilia Stroke (< 1 month) Elective arthroplasty Hip, pelvis, or leg fracture Acute spinal cord injury (< 1 month) Prophylaxis Regimen Total Risk Factor Score Risk Level Prophylaxis Regimen 0-1 Low Early ambulation 2 Moderate Order ONE of the following: *Sequential Compression Device (SCD) *Heparin 5000 units SQ BID 3-4 Higher Order ONE of the following medications: *Heparin 5000 units SQ TID *Enoxaparin/Lovenox 40 mg SQ daily (WT < 150 kg, CrCl > 30 mL/min) *Enoxaparin/Lovenox 30 mg SQ daily (WT < 150 kg, CrCl > 10-29 mL/min) *Enoxaparin/Lovenox 30 mg SQ BID (WT < 150 kg, CrCl > 30 mL/min) AND/OR *Sequential Compression Device (SCD) 5 or more Highest Order ONE of the following medications: *Heparin 5000 units SQ TID (Preferred with Epidurals) *Enoxaparin/Lovenox 40 mg SQ daily (WT < 150 kg, CrCl > 30 mL/min) *Enoxaparin/Lovenox 30 mg SQ daily (WT < 150 kg, CrCl > 10-29 mL/min) *Enoxaparin/Lovenox 30 mg SQ BID (WT < 150 kg, CrCl > 30 mL/min) AND *Sequential Compression Device (SCD) Assessment and Plan Problem List: (1) Sepsis ICD Code: A41.9 - Sepsis, unspecified organism Plan: Due to influenza. Pulmonary exam is concerning and I am unable to rule out a superimposed bacterial infection. - Continue treatment for influenza with Tamiflu - Continue IV antibiotics for 24-48 hours and follow blood cultures. - Continue IV fluid. Follow fever curve. (2) Influenza A ICD Code: J10.1 - Influenza due to other identified influenza virus with other respiratory manifestations Plan: Tamiflu as above. Supplemental oxygen Mucinex Breathing treatments as needed. IS (3) Hypoxemia ICD Code: R09.02 - Hypoxemia Plan: Supplemental oxygen as above. IS (4) HTN (hypertension) ICD Code: I10 - Essential (primary) hypertension Plan: Blood pressure has been borderline low. Parameters ordered for antihypertensives. (5) Diabetes ICD Code: E11.9 - Type 2 diabetes mellitus without complications Status: Chronic Plan: Sliding scale insulin with Accu-Cheks. Assessment and Plan Admit to inpatient. Physician Certification 2 Midnight Certification Type: Admission for Inpatient Services Order for Inpatient Services The services are ordered in accordance with Medicare regulations or non- Medicare payer requirements, as applicable. In the case of services not specified as inpatient-only, they are appropriately provided as inpatient services in accordance with the 2-midnight benchmark. Estimated LOS (days): 3 days is the estimated time the patient will need to remain in the hospital, assuming treatment plan goals are met and no additional complications. Post-Hospital Plan: Home Problem Qualifiers (1) Diabetes: Hector Matson MD Jul 28, 2017 09:54
[2017-07-28] MEDS: guaiFENesin E.R. 600 MG TAB PO SCH ×2 (10:16→20:54)
[2017-07-28] MEDS: RESP: ALBUTEROL 2.5 MG/IPRATROPIUM 0.5 MG NEB (SCH) NEB ×2 (14:18→19:20)
[2017-07-28] MEDS: ACETAMINOPHEN/CODEINE 300 MG/30 MG TAB PO PRN (18:35)
[2017-07-29] VITALS (12 sets, daily range): BP systolic 112–124; BP diastolic 58–74; PULSE 83–109; RESP 17–20; TEMP 97.4–99.2; O2SAT 95–100
[2017-07-29] MEDS: SODIUM CHLOR 0.9% 1000 ML INJ 1,000 ML IV SCH ×3 (01:17→23:55)
[2017-07-29] MEDS: PIPERACIL-TAZO 4.5 GM PREMIX 100 ML IV SCH ×4 (01:53→20:38)
[2017-07-29] MEDS: ACETAMINOPHEN/CODEINE 300 MG/30 MG TAB PO PRN (01:53)
[2017-07-29] MEDS: HEPARIN SODIUM - SQ 10,000 UNITS/ML VIAL SQ SCH ×3 (05:52→20:39)
[2017-07-29 07:50] LABS: HEMATOCRIT 32.4 % (39.0-51.0); HEMOGLOBIN 10.3 GM/DL (13.0-17.0); MEAN CELL VOLUME 65.9 FL (80.0-100.0); MEAN CORPUSCULAR HEMOGLOBIN 20.9 PG (27.0-34.0); MEAN CORPUSCULAR HGB CONC 31.8 % (32.0-36.0); MEAN PLATELET VOLUME 8.7 FL (7.0-11.0); PLATELET COUNT 124 TH/MM3 (150-450); RED BLOOD COUNT 4.92 MIL/MM3 (4.50-5.90)
[2017-07-29] MEDS: INSULIN ASPART SUPPLEMENTAL SCALE SQ SCH ×4 (07:56→20:23)
[2017-07-29 08:00] LABS: BICARBONATE 25.9 MEQ/L (21.0-32.0)
[2017-07-29] MEDS: guaiFENesin E.R. 600 MG TAB PO SCH ×2 (08:00→20:38)
[2017-07-29] MEDS: OSELTAMIVIR PHOSPHATE 75 MG CAP PO SCH ×2 (08:00→20:38)
[2017-07-29] MEDS: LOSARTAN 25 MG TAB PO SCH (08:00)
[2017-07-29] MEDS: PANTOPRAZOLE SOD 20 MG DELAYED RELEASE TAB PO SCH ×2 (08:01→20:39)
[2017-07-29] MEDS: SODIUM CHLORIDE 0.9% FLUSH 10 ML FLUSH IV FLUSH SCH ×2 (08:01→20:37)
[2017-07-29] MEDS: CHOLESTYRAMINE 4 GM PACKET PO SCH (08:01)
[2017-07-29 08:03] LABS: CREATININE 1.4 MG/DL (0.60-1.30)
[2017-07-29] MEDS: RESP: ALBUTEROL 2.5 MG/IPRATROPIUM 0.5 MG NEB (SCH) NEB ×3 (08:30→20:09)
--- NOTE | 2017-07-29 12:45 | HHI.PR ---
Subjective Remarks Patient reports is feeling slightly better, coughing less and breathing easier. Complained of a persistent sore throat. Objective Vitals Vital Signs Date Time Temp Pulse Resp B/P (MAP) Pulse Ox O2 Delivery O2 Flow Rate FiO2 07/29/17 08:33 95 Nasal Cannula 1.00 07/29/17 07:58 98.1 85 17 124/74 (91) 100 07/29/17 04:00 97.4 84 20 121/66 (84) 100 07/29/17 00:00 98.1 96 20 112/58 (76) 98 07/28/17 20:35 20 07/28/17 20:00 99.1 116 20 145/67 (93) 95 07/28/17 20:00 113 07/28/17 19:21 99 Nasal Cannula 2.00 07/28/17 16:00 99.7 82 14 104/64 (77) 95 07/28/17 15:01 92 I/O 07/28/17 07/28/17 07/28/17 07/29/17 07/29/17 07/29/17 07:00 15:00 23:00 07:00 15:00 23:00 Intake Total 1000 ml 1400 ml 1200 ml 1620 ml Output Total 200 ml 400 ml Balance 1000 ml 1200 ml 1200 ml 1220 ml Intake Oral 300 ml 120 ml IV Total 1000 ml 1100 ml 1200 ml 1500 ml Output Urine Total 200 ml 400 ml # Voids 4 # Bowel Movements 0 0 Result Diagram: 07/29/17 0701 07/29/17 0701 Objective Remarks GENERAL: This is a well-nourished, well-developed patient, in no apparent distress. CARDIOVASCULAR: Normal rate and regular rhythm without murmurs, gallops, or rubs. RESPIRATORY: Better air movement. Still has spasmodic cough. Scattered rhonchi throughout. GASTROINTESTINAL: Abdomen soft, non-tender, non-distended. Normal active bowel sounds MUSCULOSKELETAL: Extremities without cyanosis, or edema. NEURO: Alert & Oriented x4 to person, place, time, situation. Moves all ext x4 PSYCH: Appropriate mood and affect. A/P Problem List: (1) Sepsis ICD Code: A41.9 - Sepsis, unspecified organism Plan: Due to influenza. Pulmonary exam is concerning and unable to rule out a superimposed bacterial infection. Improving - Continue treatment for influenza with Tamiflu - Continue IV antibiotics for another 24 hrs. If he continues to improve, would consider DC home tomorrow with a short course of Doxycyclin in addition to Tamiflu. - Follow fever curve. (2) Influenza A ICD Code: J10.1 - Influenza due to other identified influenza virus with other respiratory manifestations Plan: Tamiflu as above. Supplemental oxygen Mucinex Breathing treatments as needed. IS Chloraseptic spray for sore throat. (3) Hypoxemia ICD Code: R09.02 - Hypoxemia Plan: Supplemental oxygen as above. IS Wean off oxygen as tolerated (4) HTN (hypertension) ICD Code: I10 - Essential (primary) hypertension Plan: Blood pressure has been borderline low. Parameters ordered for antihypertensives. (5) Diabetes ICD Code: E11.9 - Type 2 diabetes mellitus without complications Status: Chronic Plan: Sliding scale insulin with Accu-Cheks. Discharge Planning Plan for DC home tomorrow if he continues to improve. Problem Qualifiers (1) Diabetes: Hector Matson MD Jul 29, 2017 12:45
[2017-07-29] MEDS ORDERED: PHENOL 1.4% SOLN 180 ML BTL OROPHARYNG PRN (14:00)
[2017-07-30] VITALS: BP 128/62; PULSE 92; RESP 20; TEMP 96.1; O2SAT 97
[2017-07-30] MEDS: PIPERACIL-TAZO 4.5 GM PREMIX 100 ML IV SCH ×2 (02:16→09:24)
[2017-07-30 04:00] VITALS: BP 121/97; PULSE 79; RESP 20; TEMP 98.4; O2SAT 97
[2017-07-30] MEDS: HEPARIN SODIUM - SQ 10,000 UNITS/ML VIAL SQ SCH (06:10)
[2017-07-30 07:45] LABS: HEMATOCRIT 30.2 % (39.0-51.0); HEMOGLOBIN 9.1 GM/DL (13.0-17.0); MEAN CELL VOLUME 66.1 FL (80.0-100.0); MEAN CORPUSCULAR HEMOGLOBIN 19.9 PG (27.0-34.0); MEAN CORPUSCULAR HGB CONC 30.1 % (32.0-36.0); MEAN PLATELET VOLUME 9.3 FL (7.0-11.0); PLATELET COUNT 132 TH/MM3 (150-450); RED BLOOD COUNT 4.57 MIL/MM3 (4.50-5.90); RED CELL DISTRIBUTION WIDTH 14.7 % (11.6-17.2); WHITE BLOOD COUNT 5.2 TH/MM3 (4.0-11.0)
[2017-07-30 07:50] VITALS: BP 133/62; PULSE 83; RESP 20; TEMP 97.2; O2SAT 94
[2017-07-30 07:58] LABS: CALCIUM 8.1 MG/DL (8.5-10.1)
[2017-07-30 07:59] LABS: BICARBONATE 25.2 MEQ/L (21.0-32.0)
[2017-07-30 08:00] VITALS: PULSE 96
[2017-07-30] MEDS: RESP: ALBUTEROL 2.5 MG/IPRATROPIUM 0.5 MG NEB (SCH) NEB (08:00)
[2017-07-30 08:01] VITALS: O2SAT 97
[2017-07-30 08:02] LABS: CREATININE 1.2 MG/DL (0.60-1.30)
[2017-07-30] MEDS: INSULIN ASPART SUPPLEMENTAL SCALE SQ SCH ×2 (09:22→12:00)
[2017-07-30] MEDS: guaiFENesin E.R. 600 MG TAB PO SCH (09:23)
[2017-07-30] MEDS: SODIUM CHLORIDE 0.9% FLUSH 10 ML FLUSH IV FLUSH SCH (09:23)
[2017-07-30] MEDS: CHOLESTYRAMINE 4 GM PACKET PO SCH (09:23)
[2017-07-30] MEDS: LOSARTAN 25 MG TAB PO SCH (09:23)
[2017-07-30] MEDS: PANTOPRAZOLE SOD 20 MG DELAYED RELEASE TAB PO SCH (09:24)
[2017-07-30] MEDS: OSELTAMIVIR PHOSPHATE 75 MG CAP PO SCH (09:24)
[2017-07-30] MEDS: SODIUM CHLOR 0.9% 1000 ML INJ 1,000 ML IV SCH (10:13)
[2017-07-30 11:00] VITALS: BP 136/80; PULSE 76; RESP 20; TEMP 96.5; O2SAT 97
--- NOTE | 2017-07-30 12:25 | HHI.DCPOC ---
Discharge Care Plan Diagnosis: (1) Influenza A Goals to Promote Your Health * To prevent worsening of your condition and complications * To maintain your health at the optimal level Directions to Meet Your Goals Take your medications as prescribed Follow your dietary instruction Follow activity as directed Keep your appointments as scheduled Take your immunizations and boosters as scheduled If your symptoms worsen call your PCP, if no PCP go to Urgent Care Center or Emergency Room Smoking is Dangerous to Your Health. Avoid second hand smoke Call the 24-hour hour crisis hotline for domestic abuse at Lacie Nicolas MD Jul 30, 2017 12:25
--- NOTE | 2017-07-30 12:30 | HHI.DS ---
Discharge Summary Admission Date Jul 28, 2017 at 09:58 Discharge Date: Jul 30, 2017 Admitting Diagnosis influenza; sepsis; bronchitis; h/o DM (1) Sepsis ICD Code: A41.9 - Sepsis, unspecified organism (2) Influenza A ICD Code: J10.1 - Influenza due to other identified influenza virus with other respiratory manifestations (3) Hypoxemia ICD Code: R09.02 - Hypoxemia (4) HTN (hypertension) ICD Code: I10 - Essential (primary) hypertension (5) Diabetes ICD Code: E11.9 - Type 2 diabetes mellitus without complications Status: Chronic Procedures none Brief History - From Admission 72-year-old male with medical history significant for hypertension, diabetes, GERD, hyperlipidemia presented to the hospital complaining of severe cough and congestion. He is had associated fever and sore throat. He presented to the emergency room earlier and was diagnosed with influenza and discharged home with Tamiflu. However he later returned because his symptoms were getting much worse. He reported diffuse myalgia and extreme fatigue. He has not been able to eat or sleep much because of a spasmodic cough bringing up yellow sputum. CBC/BMP: 07/30/17 0700 07/30/17 0700 Significant Findings Laboratory Tests Test 07/27/17 21:00 07/27/17 23:30 07/28/17 06:00 07/29/17 07:01 Hemoglobin 11.4 GM/DL (13.0-17.0) 10.0 GM/DL (13.0-17.0) 10.3 GM/DL (13.0-17.0) Hematocrit 35.9 % (39.0-51.0) 33.0 % (39.0-51.0) 32.4 % (39.0-51.0) Mean Corpuscular Volume 65.9 FL (80.0-100.0) 65.9 FL (80.0-100.0) 65.9 FL (80.0-100.0) Mean Corpuscular Hemoglobin 20.9 PG (27.0-34.0) 19.9 PG (27.0-34.0) 20.9 PG (27.0-34.0) Mean Corpuscular Hemoglobin Concent 31.6 % (32.0-36.0) 30.2 % (32.0-36.0) 31.8 % (32.0-36.0) Platelet Count 130 TH/MM3 (150-450) 129 TH/MM3 (150-450) 124 TH/MM3 (150-450) Neutrophils (%) (Auto) 94.6 % (16.0-70.0) 88.9 % (16.0-70.0) Lymphocytes (%) (Auto) 3.0 % (9.0-44.0) 5.6 % (9.0-44.0) Lymphocytes # (Auto) 0.2 TH/MM3 (1.0-4.8) 0.3 TH/MM3 (1.0-4.8) Platelet Estimate LOW (NORMAL) Ovalocytes 1+ (NORMAL) Activated Partial Thromboplast Time 30.5 SEC (24.3-30.1) Urine Protein 30 mg/dL (NEG-TRACE) Urine Hyaline Casts 3-5 /lpf (RARE) Urine Mucus FEW /lpf (OCC) Calcium Level 8.2 MG/DL (8.5-10.1) 7.3 MG/DL (8.5-10.1) 8.0 MG/DL (8.5-10.1) Sodium Level 135 MEQ/L (136-145) Estimat Glomerular Filtration Rate 60 ML/MIN (>89) 54 ML/MIN (>89) 50 ML/MIN (>89) Lactic Acid Level 2.6 mmol/L (0.4-2.0) Random Glucose 63 MG/DL (74-106) 71 MG/DL (74-106) Total Protein 5.8 GM/DL (6.4-8.2) Protein Corrected Calcium 8.0 MG/DL (8.5-10.1) Creatinine 1.40 MG/DL (0.60-1.30) Chloride Level 108 MEQ/L (98-107) Test 07/30/17 07:00 Hemoglobin 9.1 GM/DL (13.0-17.0) Hematocrit 30.2 % (39.0-51.0) Mean Corpuscular Volume 66.1 FL (80.0-100.0) Mean Corpuscular Hemoglobin 19.9 PG (27.0-34.0) Mean Corpuscular Hemoglobin Concent 30.1 % (32.0-36.0) Platelet Count 132 TH/MM3 (150-450) Random Glucose 73 MG/DL (74-106) Calcium Level 8.1 MG/DL (8.5-10.1) Estimat Glomerular Filtration Rate 60 ML/MIN (>89) Imaging Chest x-ray completed prior to arrival did show mild cardiomegaly without pulmonary infiltrate or without pulmonary vasculature engorgement PE at Discharge GENERAL: This is a well-nourished, well-developed patient, in no apparent distress. CARDIOVASCULAR: Normal rate and regular rhythm without murmurs, gallops, or rubs. RESPIRATORY: Better air movement. Still has spasmodic cough. Scattered rhonchi throughout. GASTROINTESTINAL: Abdomen soft, non-tender, non-distended. Normal active bowel sounds MUSCULOSKELETAL: Extremities without cyanosis, or edema. NEURO: Alert & Oriented x4 to person, place, time, situation. Moves all ext x4 PSYCH: Appropriate mood and affect. Pt update on day of discharge Patient doing well today. No longer septic. Has improved with empiric therapy. Discharge plan discussed with patient and spouse Hospital Course Patient seen and treated for Sepsis due to FLU. Patient did well with supportive care and empiric antibiotics. He had some transient hypoxemia Pt Condition on Discharge: Good Discharge Disposition: Discharge Home Discharge Time: <= 30 minutes Discharge Instructions DIET: Follow Instructions for: As Tolerated, No Restrictions Activities you can perform: Regular-No Restrictions Follow up Referrals: PCP Follow-up - 1 Week with octaviano Continued Medications: Acetaminophen (Tylenol) 325 Mg Tab 650 MG PO Q4H, TAB 0 Refills Cholestyramine (Cholestyramine) 4 Gm/Dose Powd 4 GM PO DAILY for Dyslipidemia, #1 CAN 0 Refills 1 level scoopful of powder contains 4 grams of cholestyramine. Glimepiride (Glimepiride) 1 Mg Tab 1 MG PO DAILY for Blood Sugar Management, #30 TAB 0 Refills Take with breakfast or first main meal Losartan (Losartan) 25 Mg Tab 25 MG PO DAILY for Blood Pressure Management, #30 TAB 0 Refills Ondansetron Odt (Zofran Odt) 4 Mg Tab 4 MG SL Q6HR PRN for Nausea/Vomiting, #10 TAB 0 Refills Oseltamivir (Tamiflu) 75 Mg Cap 75 MG PO BID for Mgmt Viral Infection for 5 Days, #10 CAP 0 Refills Pantoprazole (Pantoprazole) 20 Mg Tab 20 MG PO BID for Reflux, #30 TAB 0 Refills Lacie Nicolas MD Jul 30, 2017 12:30
[2017-07-30] MEDS ORDERED: FUROSEMIDE 20 MG/2 ML VIAL IV PUSH ONE (12:45)
== END 2017-07-30 13:43 | disposition home or self-care (01) | DRG 872 ==
LOC: PHED 19:14 → PHEDA 21:52 → PH3A 07-28 00:57 → OBSVTOIN 07-28 09:58
PROVIDERS: ADMIT Hospitalist; ATTEND Hospitalist
DX: A41.89 Other specified sepsis (principal); E11.9 Type 2 diabetes mellitus without complications; J09.X2 Influenza due to identified novel influenza A virus with other respiratory manifestations; I10 Essential (primary) hypertension; R09.02 Hypoxemia; K21.9 Gastro-esophageal reflux disease without esophagitis; E78.5 Hyperlipidemia, unspecified; Z79.84 Long term (current) use of oral hypoglycemic drugs; Z88.1 Allergy status to other antibiotic agents; F17.290 Nicotine dependence, other tobacco product, uncomplicated; Z79.899 Other long term (current) drug therapy
CPT/HCPCS: 80048; 80053; 81001; 82948; 83605; 83735; 84155; 85025; 85027; 85610; 85730; 87040; 87070; 87205; 94150; 94640; 96361; 96365; 96375; G0378; J1644; J1815; J1940; J2405; J2543; J3370; J7030; J7050